=== PATIENT | male | born 1985 | race Caucasian/White ===

== ENCOUNTER 2016-08-02 22:35 | Emergency (ER) | payer OTHER ==
[2016-08-02 22:39] VITALS: RESP 18
[2016-08-02] MEDS ORDERED: ACETAMINOPHEN TAB 500 MG TAB PO STA (23:07)
--- NOTE | 2016-08-02 23:28 | XR ---
EXAM: XR Left Elbow Complete, 3 or More Views CLINICAL HISTORY: Reason: Pain TECHNIQUE: Frontal, lateral and oblique views of the left elbow. COMPARISON: No relevant prior studies available. FINDINGS: Bones/joints: Slight irregularity of the lateral epicondyle. Otherwise, no acute fracture. No dislocation. Soft tissues: No radiopaque foreign body. IMPRESSION: Slight irregularity of the lateral epicondyle. Correlate with focal tenderness to exclude fracture.
--- NOTE | 2016-08-02 23:43 | ED ---
Skin/Abscess/FB HPI - General Chief complaint: Skin/Abscess/Foreign Body Stated complaint: Needs tick removed Time Seen by Provider: 08/02/16 22:42 Source: patient, RN notes reviewed, old records reviewed Mode of arrival: ambulatory Limitations: no limitations - History of Present Illness Initial comments: This is a 30-year-old male presents emergency Department with chief complaint of having a tick that bit him on the inner right thigh for approximately 2 hours. Patient states that he is having removed. Patient states he is also had a mild fever and a sore throat. He room relates that the fever is unrelated to the tick bite. He states he landed on it for 2 hours. He does have a history of chronic psoriasis. He also complains of some left elbow pain. He reports a few weeks ago he did injure his elbow now has some significant swelling that is never went down. Denies any nausea or vomiting abdominal pain. Patient states that his biggest concern was the tick. - Related Data Home Medications Medication Instructions Recorded Confirmed Ibuprofen [Advil] 400 mg PO HS 08/02/16 08/02/16 Naproxen Sodium [Aleve] 660 mg PO BID 08/02/16 08/02/16 Previous Rx's Medication Instructions Recorded Doxycycline [Vibramycin] 100 mg PO Q12HR 7 Days 08/03/16 Ibuprofen [Motrin] 800 mg PO Q6HR PRN #20 tab 08/03/16 Allergies Allergy/AdvReac Type Severity Reaction Status Date / Time No Known Allergies Allergy Verified 08/02/16 22:58 Review of Systems ROS Statement: Those systems with pertinent positive or pertinent negative responses have been documented in the HPI. ROS Other: All systems not noted in ROS Statement are negative. Past Medical History Past Medical History: No Reported History History of Any Multi-Drug Resistant Organisms: None Reported Past Surgical History: Appendectomy Additional Past Surgical History / Comment(s): Medical: 2 herniated discs Past Psychological History: Anxiety, Depression Smoking Status: Current every day smoker Past Alcohol Use History: Rare Past Drug Use History: None Reported General Exam - General Exam Comments Initial Comments: This is a 30-year-old male presents emergency Department with chief, patient does not appear to be in any acute distress. Limitations: no limitations General appearance: alert, in no apparent distress Head exam: Present: atraumatic, normocephalic, normal inspection Eye exam: Present: normal appearance, PERRL, EOMI. Absent: scleral icterus, conjunctival injection, periorbital swelling ENT exam: Present: normal exam, mucous membranes moist. Absent: normal oropharynx (Erythematous oropharynx. Evidence of white exudates.) Neck exam: Present: normal inspection. Absent: tenderness, meningismus, lymphadenopathy Respiratory exam: Present: normal lung sounds bilaterally. Absent: respiratory distress, wheezes, rales, rhonchi, stridor Cardiovascular Exam: Present: regular rate, normal rhythm, normal heart sounds. Absent: systolic murmur, diastolic murmur, rubs, gallop, clicks GI/Abdominal exam: Present: soft, normal bowel sounds. Absent: distended, tenderness, guarding, rebound, rigid Extremities exam: Present: normal inspection, full ROM, normal capillary refill , other (Evidence of left elbow bursitis. No evidence of erythema around the elbow. Just significant swelling.). Absent: tenderness, pedal edema, joint swelling, calf tenderness Back exam: Present: normal inspection Neurological exam: Present: alert, oriented X3, CN II-XII intact Psychiatric exam: Present: normal affect, normal mood Skin exam: Present: warm, dry, intact, normal color, other (Patient has a 3 mm dog tick on the inner thigh. It was removed. The entire tick was removed including the head.). Absent: rash Course Vital Signs 08/02/16 08/03/16 22:36 00:25 Temperature 100.6 F H 97.6 F Pulse Rate 65 63 Respiratory 18 18 Rate Blood Pressure 133/77 121/77 O2 Sat by Pulse 100 96 Oximetry Medical Decision Making - Medical Decision Making This is a 30-year-old male presents emergency Department with chief complaint of having a tick that bit him on the inner right thigh for approximately 2 hours. Patient states that he is having removed. Patient states he is also had a mild fever and a sore throat. He room relates that the fever is unrelated to the tick bite. He states he landed on it for 2 hours. He does have a history of chronic psoriasis. He also complains of some left elbow pain. He reports a few weeks ago he did injure his elbow now has some significant swelling that is never went down. Denies any nausea or vomiting abdominal pain. Patient states that his biggest concern was the tick. Patient does have erythematous oropharynx, a few areas of what appears to be exudates. Rapid strep negative. Patient tick was removed from right inner thigh and the entire tick came out. Patient also has evidence of left elbow bursitis. Patient states that he injured his elbow a few weeks ago, and the swelling persisted. Xray shows signs of irregularity over the lateral aspect of the elbow , patient has no tato tenderness. Given Abdulaziz wrap for swelling, instructed to follow up with orthopedic doctors. Patient will be discharged with doxycycline for fever and sore throat and tick prophylaxis. PAtient agrees to treatment plan and will comply. - Lab Data Lab Results 08/02/16 Range/Units 23:05 Group A Strep Rapid Negative (Negative) - Radiology Data Radiology results: report reviewed Slight irregularity over the lateral epicondyle, correlate for point tenderness. Disposition Clinical Impression: Olecranon bursitis, left elbow, Pharyngitis, Tick bite Disposition: HOME SELF-CARE Condition: Good Instructions: Tick Bite (ED), Pharyngitis (ED), Elbow Bursitis (ED) Additional Instructions: PAtietn advised to completely anabiotic prescription. Follow-up with primary care provider if symptoms continue to persist. Patient should have the Abdulaziz wrap placed. Continue taking a temperature medication. Patient should follow- up with orthopedic physician if symptoms continue to persist. Prescriptions: Doxycycline [Vibramycin] 100 mg PO Q12HR 7 Days Ibuprofen [Motrin] 800 mg PO Q6HR PRN #20 tab PRN Reason: Pain Referrals: Reshma Maxwell MD [STAFF PHYSICIAN] - 1-2 days Noemi Rodgers PAC [PHYSICIAN CANDLES POURER] - 1-2 days Time of Disposition: 23:56
[2016-08-03 00:26] VITALS: BP 121/77; PULSE 63; TEMP 97.6
== END 2016-08-03 00:26 | disposition home or self-care (01) ==
LOC: EC 22:35
DX: S70.361A Insect bite (nonvenomous), right thigh, initial encounter (principal); M70.32 Other bursitis of elbow, left elbow; J02.9 Acute pharyngitis, unspecified; F17.200 Nicotine dependence, unspecified, uncomplicated; Z79.1 Long term (current) use of non-steroidal anti-inflammatories (NSAID)
CPT/HCPCS: 87081; 87430; 99284

== ENCOUNTER → 2017-05-02 | Outpatient (CLI) | payer OTHER ==
[2017-05-02 10:47] LABS: Basophils # (A) 0.1 k/uL (0-0.2); Basophils % (A) 1 %; Eosinophils # (A) 0.4 k/uL (0-0.7); Eosinophils % (A) 4 %; HCT 40.6 % (39.0-53.0); HGB 12.9 gm/dL (13.0-17.5); Lymphocytes # (A) 2.6 k/uL (1.0-4.8); Lymphocytes % (A) 23 %; MCH 27.9 pg (25.0-35.0); MCHC 31.7 g/dL (31.0-37.0); Mean Platelet Volume 6.9; Monocytes # (A) 0.7 k/uL (0-1.0); Monocytes % (A) 6 %; Neutrophils # (A) 7.3 k/uL (1.3-7.7); Neutrophils % (A) 65 %; Platelet Count 350 k/uL (150-450); RBC 4.62 m/uL (4.30-5.90); RDW 13.5 % (11.5-15.5); WBC 11.2 k/uL (3.8-10.6)
[2017-05-02 11:07] LABS: Appearance,Urine Clear (Clear); Bilirubin,Urine Negative (Negative); Blood,Urine Negative (Negative); Color,Urine Yellow; Glucose,Urine (UA) Negative (Negative); Ketones,Urine Negative (Negative); Leukocyte Esterase,Urine Negative (Negative); Nitrite,Urine Negative (Negative); PH, Urine 6.5 (5.0-8.0); Protein,Urine Negative (Negative); Specific Gravity,Urine 1.011 (1.001-1.035); Urobilinogen,Urine <2.0 mg/dL (<2.0)
[2017-05-02 11:11] LABS: ALT 18 U/L (21-72); AST 21 U/L (17-59); Albumin 4.5 g/dL (3.5-5.0); Alkaline Phosphatase 92 U/L (38-126); Anion Gap 11 mmol/L; Blood Urea Nitrogen 12 mg/dL (9-20); Carbon Dioxide 29 mmol/L (22-30); Chloride 102 mmol/L (98-107); Cholesterol 168 mg/dL (<200); Glucose 91 mg/dL (74-99); HDL Cholesterol 43 mg/dL (40-60); LDL Cholesterol,Calculated 106 mg/dL (0-99); Potassium 4.5 mmol/L (3.5-5.1); Sodium 142 mmol/L (137-145); Total Bilirubin 0.6 mg/dL (0.2-1.3); Total Protein 7.9 g/dL (6.3-8.2); Triglycerides 97 mg/dL (<150)
[2017-05-02 12:17] LABS: T4, Free (Free Thyroxine) 0.36 ng/dL (0.78-2.19)
== END | disposition home or self-care (01) ==
LOC: LABWHC1 10:26
PROVIDERS: ATTEND Nurse Practitioner Family
DX: Z00.00 Encounter for general adult medical examination without abnormal findings (principal)
CPT/HCPCS: 36415; 80053; 80061; 81003; 84439; 84443; 85025

== ENCOUNTER → 2017-10-08 | Outpatient (CLI) | payer OTHER ==
--- NOTE | 2017-10-08 18:16 | XR ---
EXAMINATION TYPE: XR wrist complete LT DATE OF EXAM: 10/08/2017 COMPARISON: NONE HISTORY: Pain TECHNIQUE: 4 views FINDINGS: There is narrowing of the radiocarpal joint space with spur formation. There is spurring at the first carpometacarpal joint. There is spurring at the scaphoid trapezium joint. I see no fractur e. 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 No fracture seen.
--- NOTE | 2017-10-08 18:17 | XR ---
EXAMINATION TYPE: XR hand complete LT DATE OF EXAM: 10/08/2017 COMPARISON: NONE HISTORY: Hand pain TECHNIQUE: 3 views FINDINGS: The metacarpals are intact. I see no fracture nor dislocation. There is moderate osteoarthr itis at the radiocarpal joint. There are no erosions. There is no subluxation. IMPRESSION: No acute abnormality of the left hand. Osteoarthritic changes at the carpus. No evidence of inflammatory arthritis.
== END | disposition home or self-care (01) ==
LOC: RADXRMAIN 17:24
PROVIDERS: ATTEND Emergency Medicine
DX: M19.032 Primary osteoarthritis, left wrist (principal); S63.602A Unspecified sprain of left thumb, initial encounter

== ENCOUNTER 2021-03-15 09:47 | Emergency (ER) | payer BC, OTHER ==
[2021-03-15 10:00] VITALS: BP 127/82; PULSE 97; RESP 18; TEMP 98.8
[2021-03-15] MEDS ORDERED: methocarbamoL 500 MG TAB PO STA (10:46)
[2021-03-15] MEDS ORDERED: KETOROLAC 15 MG/ML 1 ML VIAL IM STA (10:46)
[2021-03-15] MEDS ORDERED: HYDROcodone/APAP 5-325MG 1 EACH TAB PO STA (10:46)
[2021-03-15] MEDS ORDERED: LIDOCAINE 5% PATCH TOPICAL STA (10:47)
--- NOTE | 2021-03-15 13:09 | CT ---
EXAMINATION TYPE: CT thoracic spine wo con DATE OF EXAM: 03/15/2021 COMPARISON: Thoracic spine 07/06/2012 HISTORY: Sudden back pain CT DLP: 944 mGycm Automated exposure control for dose reduction was used. Helical imaging through the thoracic spine. C oronal and sagittal reconstructions FINDINGS: Thoracic vertebral bodies show preserved height, there is a spinal curvature present. There is mild m ultilevel spondylosis, loss of disc height at intervertebral levels. No evident spinal stenosis or fo raminal encroachment. No evident disc herniation the exception of T6-7, small central disc bulge is p resent, axial image 62, left posterior paracentral disc protrusion also present at T7-8. Multilevel S chmorl's node formation is present especially at the lower thoracic spine. There is a nonobstructive calculus in the left kidney towards the upper pole measuring approximately 5 mm, some punctate calcifications present within the right kidney, there may be medullary sponge kid anival present bilaterally. Some minimal basilar atelectatic changes present within the lungs. No eviden t pleural effusion. Aorta shows normal caliber, atheromatous change is minimal. Some coronary artery calcifications are present. No evident pneumothorax. Arthropathy present at the sternoclavicular join ts. IMPRESSION: THERE IS MILD DEGENERATIVE DISC DISEASE, SPINAL CURVATURE. CORONARY ARTERY DISEASE, THERE IS BILATERA L NONOBSTRUCTIVE NEPHROLITHIASIS.
--- NOTE | 2021-03-15 13:19 | ED ---
General Adult HPI - General Chief complaint: Back Pain/Injury Stated complaint: back pain Time Seen by Provider: 03/15/21 10:06 Source: patient, RN notes reviewed, old records reviewed Mode of arrival: ambulatory Limitations: no limitations - History of Present Illness Initial comments: Patient is a 35-year-old male with past medical history is unremarkable presents emergency Department complaining of mid back pain. He believes he has a pinched nerve. 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 I also last few days worsening. No specific location located along his thoracic spine. Denies any radiation of the pain. States is sharp and depended on motion and position. Denies any nausea, vomiting, numbness, weakness, chest pain, shortness breath. Has no other acute point at this time. Denies any trauma, falls, no injury. He presents over possible pinched nerve versus muscle strain. - Related Data Previous Rx's Medication Instructions Recorded Ibuprofen [Motrin] 800 mg PO Q8H PRN 14 Days #42 tab 03/15/21 Lidocaine 5% Patch [Lidoderm 5% 1 patch TOPICAL DAILY PRN 7 Days 03/15/21 Patch] #7 patch Methocarbamol [Robaxin-750] 750 mg PO BID PRN 7 Days #14 tablet 03/15/21 Allergies Allergy/AdvReac Type Severity Reaction Status Date / Time No Known Allergies Allergy Verified 03/15/21 10:28 Review of Systems ROS Statement: Those systems with pertinent positive or pertinent negative responses have been documented in the HPI. Review of Systems: CONST: Denies fever EYES: Denies blurry vision ENT: Denies nasal congestion C/V: Denies Chest pain RESP: Denies shortness of breath GI: Denies abdominal pain : Denies dysuria SKIN: Denies rash. MSK: Endorses back pain NEURO: Denies headache ROS Other: All systems not noted in ROS Statement are negative. Past Medical History Past Medical History: No Reported History History of Any Multi-Drug Resistant Organisms: None Reported Past Surgical History: Appendectomy Additional Past Surgical History / Comment(s): Medical: 2 herniated discs spinal injection, l hand tendon transfer Past Psychological History: Anxiety, Depression Smoking Status: Current every day smoker Past Alcohol Use History: Rare Past Drug Use History: None Reported General Exam - General Exam Comments Initial Comments: General: Appears in no acute distress. HEAD: Normal with no signs of head trauma. EYES: PERRLA, EOMI, conjunctiva normal, no discharge. ENT: Hearing grossly intact, normal oropharynx. RESPIRATORY: Clear breath sounds bilaterally. No wheezes, rales, or rhonchi. C/V: Regular rate and rhythm. S1 and S2 auscultated, no edema, peripheral pulses 2+ and intact throughout ABD: Abd is soft, nontender, nondistended EXT: Normal range of motion, no obvious deformity. No midline cervical and lumbar spine tenderness palpation. Patient does have midline mid thoracic spine tenderness to palpation, particularly located over the right side of midline at approximately the level of T7 or T8. Does not radiate. No obvious skin changes. SKIN: No rashes or lesions observed on exposed skin. NEURO: Alert and oriented x 4. Cranial nerves II-XII intact. No focal sensory or strength deficits. Limitations: no limitations Course Vital Signs 03/15/21 09:58 Temperature 98.8 F Pulse Rate 97 Respiratory 18 Rate Blood Pressure 127/82 O2 Sat by Pulse 100 Oximetry Medical Decision Making - Medical Decision Making Some patient's presentation and physical exam, I'm concerned for possible bony tracking to the patient's back. Therefore we'll obtain a CT of his back as well as administered Slater, Toradol, lidocaine patch, Robaxin for pain control. He was in agreement this plan. Patient's CT imaging was negative for acute process, but does show some mild small disc bulge at T7 8. I reviewed and reevaluation come patient's pain is somewhat improved. I did discuss that if pain persists, he may require an MRI to evaluate for nerve involvement. However there is no signs of acute bony tracking dry. He was in agreement this plan. Patient will be given a work note for off work. He also be given follow-up with orthopedic surgery. I will provide the patient with a prescription for lidocaine patch, Motrin, Robaxin. I instructed the patient to follow up with their PCP in the next 3 days. I provided contact information for follow up with orthopedic surgery. I explained that the patient should return to the emergency department if they experience any worsening symptoms. Strict return precautions were discussed with the patient. The patient expressed understanding of these instructions. I answered all questions that the patient had. The patient was discharged home in for condition with their prescriptions and follow up information. Disposition Clinical Impression: Back pain, Muscle pain Disposition: HOME SELF-CARE Condition: Fair Instructions (If sedation given, give patient instructions): Back Pain (ED) Prescriptions: Lidocaine 5% Patch [Lidoderm 5% Patch] 1 patch TOPICAL DAILY PRN 7 Days #7 patch PRN Reason: Pain Ibuprofen [Motrin] 800 mg PO Q8H PRN 14 Days #42 tab PRN Reason: Pain Methocarbamol [Robaxin-750] 750 mg PO BID PRN 7 Days #14 tablet PRN Reason: Pain Is patient prescribed a controlled substance at d/c from ED?: No Referrals: None,Stated [Primary Care Provider] - 1-2 days Jose Juan Evangelista PAC [PHYSICIAN FLOOR COVERING INSTALLER] - 1-2 days
== END 2021-03-15 13:55 | disposition home or self-care (01) ==
LOC: EC 09:47
DX: M54.9 Dorsalgia, unspecified (principal); M79.10 Myalgia, unspecified site; F17.200 Nicotine dependence, unspecified, uncomplicated
CPT/HCPCS: 72128; 99284; 96372; J1885